=== PATIENT | female | born 1985 | race Caucasian/White ===

== ENCOUNTER 2024-02-05 18:38 | Emergency (ER) | payer OTHER, SELFPAY ==
[2024-02-05 18:45] VITALS: BP 172/101; PULSE 68; TEMP 36.9; O2SAT 99
--- NOTE | 2024-02-05 19:06 | ED_ITS ---
HPI - Dental/Oral General Chief complaint: Dental/Oral Stated complaint: Dental Pain Time Seen by Provider: 02/05/24 18:55 Source: patient Mode of arrival: walk-in Limitations: no limitations History of Present Illness HPI Narrative: Patient is a 38-year-old female who presents to the emergency department for evaluation of dental pain. Patient states she had a broken tooth at tooth #31 for some time, she states she broke it while eating again and a smaller chip came off of it. She has had no difficulty swallowing. She reports increased pain over the last day. She is tearful at initial interview. She is not concerned for . No medications taken prior to arrival. Related Data Home Medications ?Medication ?Instructions ?Recorded ?Confirmed fluoxetine 20 mg capsule 20 mg PO DAILY 02/05/24 02/05/24 quetiapine 300 mg tablet,extended 300 mg PO BEDTIME 02/05/24 02/05/24 release 24 hr Previous Rx's ?Medication ?Instructions ?Recorded amoxicillin 500 mg capsule 500 mg PO TID 10 days #30 caps 02/05/24 nabumetone 750 mg tablet 750 mg PO BID PRN pain #10 tabs 02/05/24 Allergies Allergy/AdvReac Type Severity Reaction Status Date / Time Sulfa (Sulfonamide AdvReac Verified 02/05/24 18:44 Antibiotics) Review of Systems ROS Constitutional Denies: fever or chills Ears, nose, mouth, and throat Reports: mouth pain; Denies: throat pain or nasal congestion Cardiovascular Denies: chest pain Respiratory Denies: shortness of breath or cough Gastrointestinal Denies: nausea or vomiting Integumentary/Breast Denies: rash Exam Narrative Exam Narrative: Gen.: Awake, alert, in no distress Head: Normocephalic, atraumatic ENT: Moist mucous membranes, Tooth #31 is tender with root exposed. Fracture of the tooth noted. Multiple dental caries noted throughout the mouth. No redness or swelling noted of the tongue. Clear speech. Airway widely open and patent. Respiratory: No respiratory distress Extremities: Moves extremities equally Psych: Normal mood and affect Neuro: No focal neuro deficit Skin: Warm, dry, intact Constitutional Vital Signs, click to edit/add: Last Vital Signs Temp 98.5 F 02/05/24 18:45 Pulse 68 02/05/24 18:45 Resp 17 02/05/24 18:45 BP 172/101 H 02/05/24 18:45 Pulse Ox 99 02/05/24 18:45 O2 Del Method Room Air 02/05/24 18:45 Course Vital Signs Vital signs: Vital Signs Temperature 98.5 F 02/05/24 18:45 Pulse Rate 68 02/05/24 18:45 Respiratory Rate 17 02/05/24 18:45 Blood Pressure 172/101 H 02/05/24 18:45 Pulse Oximetry 99 02/05/24 18:45 Oxygen Delivery Method Room Air 02/05/24 18:45 Temperature 98.5 F 02/05/24 18:45 Pulse Rate 68 02/05/24 18:45 Respiratory Rate 17 02/05/24 18:45 Blood Pressure 172/101 H 02/05/24 18:45 Pulse Oximetry 99 02/05/24 18:45 Oxygen Delivery Method Room Air 02/05/24 18:45 MDM - Dental/Oral MDM Narrative Medical decision making narrative: Patient treated with topical analgesia. She has a fractured tooth with no evidence of dental abscess. Follow-up with dentist and return to the ER if symptoms change or worsen. Topical analgesia, antibiotics and NSAIDs provided for home. Medical Records Attestation: I reviewed the patient's medical records. Discharge Plan Discharge Stand Alone Forms: Portal Instructions Chief Complaint: Dental/Oral Clinical Impression: Dental caries, Toothache Patient Disposition: Home, Self-Care Time of Disposition Decision: 19:04 Condition: Good Prescriptions / Home Meds: New amoxicillin 500 mg capsule 500 mg PO TID 10 Days Qty: 30 0RF nabumetone 750 mg tablet 750 mg PO BID PRN (Reason: pain) Qty: 10 0RF Rx Instructions: Take with food No Action quetiapine 300 mg tablet extended release 24 hr 300 mg PO BEDTIME fluoxetine 20 mg capsule 20 mg PO DAILY Print Language: Persian Instructions: Toothache (ED) Referrals: Paz Cheney NP [Primary Care Provider] - 1 week Discharge Date/Time: 02/05/24 19:35
[2024-02-05] MEDS: KETOROLAC TROMETHAMINE 10 MG TABLET PO (19:16)
[2024-02-05] MEDS: BENZOCAINE 30 ML, lidocaine HCL 15 ML MM (19:16)
== END 2024-02-05 19:35 | disposition home or self-care (01) ==
PROVIDERS: Emergency Provider Emergency Medicine; PCP Nurse Practitioner
DX: K02.9 Dental caries, unspecified (principal); K08.89 Other specified disorders of teeth and supporting structures; Z79.899 Other long term (current) drug therapy
CPT/HCPCS: 99284